=== PATIENT | male | born 1955 | race African-American/Black ===

== ENCOUNTER 2019-05-06 11:26 | Observation (INO) | payer BC ==
[2019-05-06] MEDS ORDERED: Ondansetron 4 MG/2 ML SDV IVPUSH PRN (12:11)
[2019-05-06] MEDS ORDERED: Morphine 2 MG/ML Syringe IVPUSH PRN (13:14)
--- NOTE | 2019-05-06 13:21 | PCM.HP.2 ---
<Marci Lira - Last Filed: 05/06/19 13:16> H&P History of Present Illness - General Date of Service: 05/06/19 Admit Problem/Dx: Admission Diagnosis/Problem Admission Diagnosis/Problem Pancreatitis - History of Present Illness Initial Comments - Free Text/Narative: The patient is a 64 year old male with past medical history of CAD, HTN, hyperlipidemia, and DMII who was a direct admit from his PCP, Carmella Eldridge. He was seen yesterday in clinic for abdominal pain, labs were drawn and when they returned today he instructed he needed to be admitted for pancreatitis. Patient report 8 day history of aching/burning epigastric pain, had one episode of nausea/vomiting several days ago but otherwise none and no diarrhea. Hasn't really been eating or drinking. Denies fever/chills, chest pain , or shortness of breath. Denies hx of pancreatitis, no hx of gallstones, drinks 3 beers a week at [email or web address]. In the outpatient setting, patient's lab showed no leukocytosis of anemia, did have elevated BUN/Cr 23/1.5, HA1c of 6.9, LFTs wnl, negative troponiin and lipase of 678. PCP- Carmella Eldridge Past Medical History HEENT History: Reports: None Cardiovascular History: Reports: CAD, High Cholesterol, Hypertension, MA. Denies: Stents Respiratory History: Reports: None Gastrointestinal History: Reports: None Genitourinary History: Reports: None Musculoskeletal History: Reports: None Neurological History: Reports: None Psychiatric History: Reports: None Endocrine/Metabolic History: Reports: Diabetes, Type II Hematologic History: Reports: None Immunologic History: Reports: None Dermatologic History: Reports: None Social & Family History - Tobacco Use Smoking Status *Q: Current Every Day Smoker - Alcohol Use Alcohol Use History: Yes Total Drinks Per Week Comment: 3 - Recreational Drug Use Recreational Drug Use: No H&P Review of Systems - Review of Systems: Review Of Systems: See Below General: Reports: No Symptoms HEENT: Reports: No Symptoms Pulmonary: Reports: No Symptoms Cardiovascular: Reports: No Symptoms Gastrointestinal: Reports: Abdominal Pain. Denies: Diarrhea, Nausea, Vomiting Genitourinary: Reports: No Symptoms Musculoskeletal: Reports: No Symptoms Skin: Reports: No Symptoms Psychiatric: Reports: No Symptoms Neurological: Reports: No Symptoms Hematologic/Lymphatic: Reports: No Symptoms Immunologic: Reports: No Symptoms Exam - Exam Exam: See Below - Exam General: Alert, Oriented, Cooperative HEENT: Conjunctiva Clear, EOMI, Mucosa Moist & [place], Posterior Pharynx Clear, Pupils Equal, Pupils Reactive Neck: Supple Lungs: Clear to Auscultation, Normal Respiratory Effort Cardiovascular: Regular Rate, Regular Rhythm GI/Abdominal Exam: Normal Bowel Sounds, Soft, Non-Tender, No Distention Extremities: No Pedal Edema Skin: Warm, Dry, Intact Neuro Extensive - Mental Status: Alert, Oriented x3 Psychiatric: Alert, Normal Affect, Normal Mood Problem List Initiated/Reviewed/Updated: Yes Orders Last 24hrs: Active Orders 24 hr Category Date Time Status Admission Status [Patient Status] [ADT] Routine ADT 05/06/19 12:12 Active Accu Check [Blood Glucose Check, Bedside] [RC] Q6HR Care 05/06/19 13:02 Active Intake and Output Strict [RC] ASDIRECTED Care 05/06/19 12:11 Active Vital Signs [RC] PER UNIT ROUTINE Care 05/06/19 12:11 Active Nothing Per Oral Diet [DIET] Diet 05/06/19 Dinner Active Abdomen Ltd [US] Stat Exams 05/06/19 12:11 Ordered CBC WITH AUTO DIFF [HEME] Stat Lab 05/06/19 12:11 Ordered COMPREHENSIVE METABOLIC PN,CMP [CHEM] Stat Lab 05/06/19 12:11 Ordered LIPASE [CHEM] Stat Lab 05/06/19 12:11 Ordered LIPID PANEL [CHEM] Stat Lab 05/06/19 13:15 Ordered Heparin Sodium Med 05/06/19 12:15 Ordered 5,000 units SUBCUT Q8H Insulin Aspart [NovoLOG] Med 05/06/19 17:00 Ordered See Protocol SUBCUT TIDAC Morphine Med 05/06/19 13:14 Ordered 1 mg IVPUSH Q4H PRN Ondansetron [Zofran] Med 05/06/19 12:11 Ordered 4 mg IVPUSH Q4H PRN Sodium Chloride 0.9% [Normal Saline] 1,000 ml Med 05/06/19 12:15 Ordered IV ASDIRECTED Resuscitation Status Routine Resus Stat 05/06/19 12:11 Ordered Medication Orders Heparin Sodium (Porcine) (Heparin Sodium) 5,000 units SUBCUT Q8H MATILDA Sodium Chloride (Normal Saline) 1,000 mls @ 200 mls/hr IV ASDIRECTED MATILDA Insulin Aspart (Novolog) 0 unit SUBCUT TIDAC MATILDA; Protocol Morphine Sulfate (Morphine) 1 mg IVPUSH Q4H PRN PRN Reason: Pain (severe 7-10) Ondansetron HCl (Zofran) 4 mg IVPUSH Q4H PRN PRN Reason: Nausea/Vomiting Assessment/Plan Comment:: 1. Admit for observation 2. Code status- Full 3. Vitals per routine 4. I/Os strict 5. Diet- NPO 6. DVT prophylaxis with heparin 7. Acute pancreatitis- will repeat labs- CBC, CMP, lipase and add lipid panel. Will obtain US or RUQ to rule out gallstones. Keep NPO, start IVF, and have morphine prn pain and zofran prn nausea/vomiting. 8. SUNIL- IVF 9. HTN- home meds 10. DMII- sliding scale and accuchecks 11. Tobacco use- nicotine patch. <Sherry Lewis - Last Filed: 05/07/19 14:03> H&P History of Present Illness - General Admit Problem/Dx: Admission Diagnosis/Problem Admission Diagnosis/Problem Pancreatitis Exam - Vital Signs Vital Signs: Last Vital Signs Temp 36.6 C 05/07/19 08:00 Pulse 77 05/07/19 10:25 Resp 15 05/07/19 08:00 BP 154/83 H 05/07/19 10:26 Pulse Ox 95 05/07/19 08:00 - Patient Data Lab Results Last 24 hrs: Laboratory Results - last 24 hr 05/06/19 05/06/19 05/06/19 Range/Units 13:30 13:30 17:30 WBC (4.0-11.0) K/uL RBC (4.50-5.90) M/uL Hgb (13.0-17.0) g/dL Hct (38.0-50.0) % MCV (80.0-98.0) fL MCH (27.0-32.0) pg MCHC (31.0-37.0) g/dL RDW Std Deviation (28.0-62.0) fl RDW Coeff of Glenna (11.0-15.0) % Plt Count (150-400) K/uL MPV (7.40-12.00) fL Neut % (Auto) (48.0-80.0) % Lymph % (Auto) (16.0-40.0) % [place] % (Auto) (0.0-15.0) % Eos % (Auto) (0.0-7.0) % Baso % (Auto) (0.0-1.5) % Neut # (Auto) (1.4-5.7) K/uL Lymph # (Auto) (0.6-2.4) K/uL [place] # (Auto) (0.0-0.8) K/uL Eos # (Auto) (0.0-0.7) K/uL Baso # (Auto) (0.0-0.1) K/uL Nucleated RBC % /100WBC Nucleated RBCs # K/uL Sodium 132 L (136-148) mmol/L Potassium 4.3 (3.5-5.1) mmol/L Chloride 99 (98-107) mmol/L Carbon Dioxide 29.1 (21.0-32.0) mmol/L BUN 21 H (7.0-18.0) mg/dL Creatinine 1.4 H (0.8-1.3) mg/dL Est Cr Clr Drug Dosing 42.90 mL/min Estimated GFR (MDRD) > 60.0 ml/min Glucose 126 H (74-106) mg/dL POC Glucose 91 (60-110) mg/dL Calcium 10.4 H (8.5-10.1) mg/dL Total Bilirubin 0.8 (0.2-1.0) mg/dL AST 17 (15-37) IU/L ALT 16 (14-63) IU/L Alkaline Phosphatase 64 (46-116) U/L Total Protein 8.7 H (6.4-8.2) g/dL Albumin 4.1 (3.4-5.0) g/dL Globulin 4.6 H (2.6-4.0) g/dL Albumin/Globulin Ratio 0.9 (0.9-1.6) Triglycerides 74 (0-200) mg/dL Cholesterol 114 (50-200) mg/dL LDL Cholesterol, Calc 56 L (60-180) mg/dL VLDL Cholesterol 14 (5-55) mg/dL HDL Cholesterol 43 (40-60) mg/dL Cholesterol/HDL Ratio 2.7 L (3.3-6.0) Lipase 630 H (73-393) U/L 05/07/19 05/07/19 05/07/19 Range/Units 00:18 06:05 06:05 WBC 5.96 (4.0-11.0) K/uL RBC 4.65 (4.50-5.90) M/uL Hgb 13.7 (13.0-17.0) g/dL Hct 38.9 (38.0-50.0) % MCV 83.7 (80.0-98.0) fL MCH 29.5 (27.0-32.0) pg MCHC 35.2 (31.0-37.0) g/dL RDW Std Deviation 38.1 (28.0-62.0) fl RDW Coeff of Glenna 13 (11.0-15.0) % Plt Count 216 (150-400) K/uL MPV 10.20 (7.40-12.00) fL Neut % (Auto) 41.4 L (48.0-80.0) % Lymph % (Auto) 50.0 H (16.0-40.0) % [place] % (Auto) 6.2 (0.0-15.0) % Eos % (Auto) 1.7 (0.0-7.0) % Baso % (Auto) 0.7 (0.0-1.5) % Neut # (Auto) 2.5 (1.4-5.7) K/uL Lymph # (Auto) 3.0 H (0.6-2.4) K/uL [place] # (Auto) 0.4 (0.0-0.8) K/uL Eos # (Auto) 0.1 (0.0-0.7) K/uL Baso # (Auto) 0.0 (0.0-0.1) K/uL Nucleated RBC % 0.0 /100WBC Nucleated RBCs # 0 K/uL Sodium 136 (136-148) mmol/L Potassium 4.1 (3.5-5.1) mmol/L Chloride 102 (98-107) mmol/L Carbon Dioxide 25.8 (21.0-32.0) mmol/L BUN 19 H (7.0-18.0) mg/dL Creatinine 1.4 H (0.8-1.3) mg/dL Est Cr Clr Drug Dosing 42.90 mL/min Estimated GFR (MDRD) > 60.0 ml/min Glucose 103 (74-106) mg/dL POC Glucose 139 H (60-110) mg/dL Calcium 8.7 (8.5-10.1) mg/dL Total Bilirubin 0.7 (0.2-1.0) mg/dL AST 13 L (15-37) IU/L ALT 13 L (14-63) IU/L Alkaline Phosphatase 51 (46-116) U/L Total Protein 6.7 (6.4-8.2) g/dL Albumin 3.2 L (3.4-5.0) g/dL Globulin 3.5 (2.6-4.0) g/dL Albumin/Globulin Ratio 0.9 (0.9-1.6) Triglycerides (0-200) mg/dL Cholesterol (50-200) mg/dL LDL Cholesterol, Calc (60-180) mg/dL VLDL Cholesterol (5-55) mg/dL HDL Cholesterol (40-60) mg/dL Cholesterol/HDL Ratio (3.3-6.0) Lipase (73-393) U/L 05/07/19 05/07/19 Range/Units 06:16 11:41 WBC (4.0-11.0) K/uL RBC (4.50-5.90) M/uL Hgb (13.0-17.0) g/dL Hct (38.0-50.0) % MCV (80.0-98.0) fL MCH (27.0-32.0) pg MCHC (31.0-37.0) g/dL RDW Std Deviation (28.0-62.0) fl RDW Coeff of Glenna (11.0-15.0) % Plt Count (150-400) K/uL MPV (7.40-12.00) fL Neut % (Auto) (48.0-80.0) % Lymph % (Auto) (16.0-40.0) % [place] % (Auto) (0.0-15.0) % Eos % (Auto) (0.0-7.0) % Baso % (Auto) (0.0-1.5) % Neut # (Auto) (1.4-5.7) K/uL Lymph # (Auto) (0.6-2.4) K/uL [place] # (Auto) (0.0-0.8) K/uL Eos # (Auto) (0.0-0.7) K/uL Baso # (Auto) (0.0-0.1) K/uL Nucleated RBC % /100WBC Nucleated RBCs # K/uL Sodium (136-148) mmol/L Potassium (3.5-5.1) mmol/L Chloride (98-107) mmol/L Carbon Dioxide (21.0-32.0) mmol/L BUN (7.0-18.0) mg/dL Creatinine (0.8-1.3) mg/dL Est Cr Clr Drug Dosing mL/min Estimated GFR (MDRD) ml/min Glucose (74-106) mg/dL POC Glucose 86 106 (60-110) mg/dL Calcium (8.5-10.1) mg/dL Total Bilirubin (0.2-1.0) mg/dL AST (15-37) IU/L ALT (14-63) IU/L Alkaline Phosphatase (46-116) U/L Total Protein (6.4-8.2) g/dL Albumin (3.4-5.0) g/dL Globulin (2.6-4.0) g/dL Albumin/Globulin Ratio (0.9-1.6) Triglycerides (0-200) mg/dL Cholesterol (50-200) mg/dL LDL Cholesterol, Calc (60-180) mg/dL VLDL Cholesterol (5-55) mg/dL HDL Cholesterol (40-60) mg/dL Cholesterol/HDL Ratio (3.3-6.0) Lipase (73-393) U/L Result Diagrams: 05/07/19 06:05 05/07/19 06:05 Sepsis Event Note - Focused Exam Vital Signs: Vital Signs Temp Pulse Pulse Resp BP BP Pulse Ox 05/07/19 10:26 154/83 H 05/07/19 10:25 77 154/83 H 05/07/19 10:22 154/83 H 05/07/19 08:00 36.6 C 71 15 173/88 H 95 05/07/19 03:40 36.5 C 76 16 174/77 H 98 Date Exam was Performed: 05/07/19 Time Exam was Performed: 14:02 - Problem List (1) Pancreatitis SNOMED Code(s): 28847664 ICD Code: K85.90 - ACUTE PANCREATITIS WITHOUT NECROSIS OR INFECTION, UNSP Status: Acute Current Visit: Yes (2) HTN (hypertension) SNOMED Code(s): 07921745 ICD Code: I10 - ESSENTIAL (PRIMARY) HYPERTENSION Status: Acute Current Visit: Yes (3) Diabetes SNOMED Code(s): 45699283 ICD Code: E11.9 - TYPE 2 DIABETES MELLITUS WITHOUT COMPLICATIONS Status: Acute Current Visit: Yes Orders Last 24hrs: Active Orders 24 hr Category Date Time Status Communication Order [RC] ROUTINE Care 05/07/19 04:17 Active Telemetry Monitoring [Cardiac Monitoring] [RC] Q8HR Care 05/06/19 16:00 Active Heart Healthy Diet [DIET] Diet 05/07/19 Lunch Active Aspirin [Halfprin] Med 05/07/19 10:00 Active 81 mg PO DAILY Insulin Aspart [NovoLOG] Med 05/06/19 17:00 Active See Protocol SUBCUT TIDAC Labetalol [Normodyne] Med 05/06/19 23:13 Active 10 mg IVPUSH Q4H PRN Morphine Med 05/06/19 13:14 Active 1 mg IVPUSH Q4H PRN Nicotine [Habitrol] Med 05/06/19 13:30 Active 7 mg TRDERM DAILY Pantoprazole [ProTONIX IV] 40 mg Med 05/06/19 17:45 Active Sodium Chloride 0.9% [Normal Saline] 10 ml IV Q24H amLODIPine [Norvasc] Med 05/07/19 10:00 Active 10 mg PO DAILY atorvaSTATin [Lipitor] Med 05/07/19 21:00 Active 40 mg PO BEDTIME carvediloL [Coreg] Med 05/07/19 10:00 Active 12.5 mg PO BID lisinopriL [Prinivil] Med 05/07/19 10:00 Active 10 mg PO DAILY Medication Orders Amlodipine Besylate (Norvasc) 10 mg PO DAILY [facility] Last Admin: 05/07/19 10:22 Dose: 10 mg Aspirin (Halfprin) 81 mg PO DAILY [facility] Last Admin: 05/07/19 10:25 Dose: 81 mg Atorvastatin Calcium (Lipitor) 40 mg PO BEDTIME [facility] Carvedilol (Coreg) 12.5 mg PO BID [facility] Last Admin: 05/07/19 10:25 Dose: 12.5 mg Heparin Sodium (Porcine) (Heparin Sodium) 5,000 units SUBCUT Q8H [facility] Last Admin: 05/07/19 12:16 Dose: 5,000 units Admin: 05/07/19 03:36 Dose: 5,000 units Admin: 05/06/19 20:07 Dose: 5,000 units Admin: 05/06/19 14:11 Dose: 5,000 units Sodium Chloride (Normal Saline) 1,000 mls @ 125 mls/hr IV ASDIRECTED [facility] Last Admin: 05/07/19 11:18 Dose: 125 mls/hr Infusion: 05/07/19 11:18 Dose: 125 mls/hr Admin: 05/07/19 03:36 Dose: 125 mls/hr Infusion: 05/07/19 03:15 Dose: 125 mls/hr Infusion: 05/06/19 21:30 Dose: 125 mls/hr Admin: 05/06/19 20:05 Dose: 200 mls/hr Infusion: 05/06/19 20:00 Dose: 200 mls/hr Admin: 05/06/19 15:00 Dose: 200 mls/hr Pantoprazole Sodium 40 mg/ (Sodium Chloride) 10 mls @ 300 mls/hr IV Q24H [facility] Last Admin: 05/06/19 18:24 Dose: 300 mls/hr Insulin Aspart (Novolog) 0 unit SUBCUT TIDAC [facility]; Protocol Last Admin: 05/07/19 11:42 Dose: Not Given Admin: 05/07/19 07:19 Dose: Not Given Admin: 05/06/19 17:53 Dose: Not Given Labetalol HCl (Normodyne) 10 mg IVPUSH Q4H PRN; Protocol PRN Reason: Hypertension Lisinopril (Prinivil) 10 mg PO DAILY [facility] Last Admin: 05/07/19 10:26 Dose: 10 mg Morphine Sulfate (Morphine) 1 mg IVPUSH Q4H PRN PRN Reason: Pain (severe 7-10) Last Admin: 05/06/19 15:24 Dose: 1 mg Nicotine (Habitrol) 7 mg TRDERM DAILY [facility] Last Admin: 05/07/19 09:03 Dose: 7 mg Admin: 05/06/19 14:07 Dose: 7 mg Ondansetron HCl (Zofran) 4 mg IVPUSH Q4H PRN PRN Reason: Nausea/Vomiting Assessment/Plan Comment:: I performed a history and physical exam of the patient and discussed management with resident. I have reviewed the residents note and agree with documented findings and plan unless otherwise specified in my note.
[2019-05-06 14:06] LABS: BLOOD UREA NITROGEN,BUN 21 mg/dL (7.0-18.0); CARBON DIOXIDE,CO2 29.1 mmol/L (21.0-32.0); CHLORIDE,CL 99 mmol/L (98-107); GLUCOSE RANDOM 126 mg/dL (74-106); LIPASE 630 U/L (73-393); POTASSIUM,K 4.3 mmol/L (3.5-5.1); SODIUM,NA 132 mmol/L (136-148)
[2019-05-06] MEDS: Nicotine 7 MG/24 Hr Patch TRDERM SCH (14:07)
[2019-05-06] MEDS: Heparin Sodium 5,000 Units/ML Vial SUBCUT SCH ×2 (14:11→20:07)
--- NOTE | 2019-05-06 14:22 | US ---
Limited abdominal ultrasound: Multiple real-time images of the upper right abdomen were obtained. Comparison: No previous study is available. Findings: Liver contains no focal abnormality. Pancreas is obscured from bowel gas. Right kidney shows no hydronephrosis or mass. Right kidney length is 10.4 cm. Gallbladder contains no shadowing gallstones. No gallbladder wall thickening or biliary duct dilatation is seen. Impression: 1. Obscured pancreas. 2. No additional abnormality is appreciated on right upper quadrant abdominal ultrasound exam. Diagnostic code #2 This report was dictated in [place] [employer] Time
[2019-05-06] MEDS: Sodium Chloride 0.9% 1,000 ML IV SCH ×2 (15:00→20:05)
[2019-05-06] MEDS ORDERED: Pantoprazole 40 MG in Sodium Chloride 0.9% 10 ML IV SCH (17:45)
[2019-05-06] MEDS: Insulin Aspart 100 Units/ML 3 ML Pen SUBCUT SCH (17:53)
[2019-05-06] MEDS ORDERED: Labetalol 100 MG/20 ML MDV IVPUSH ONE (21:10)
[2019-05-06] MEDS ORDERED: Labetalol 100 MG/20 ML MDV IVPUSH PRN (23:13)
[2019-05-07] MEDS: Heparin Sodium 5,000 Units/ML Vial SUBCUT SCH ×2 (03:36→12:16)
[2019-05-07] MEDS: Sodium Chloride 0.9% 1,000 ML IV SCH ×2 (03:36→11:18)
[2019-05-07 07:04] LABS: BLOOD UREA NITROGEN,BUN 19 mg/dL (7.0-18.0); CARBON DIOXIDE,CO2 25.8 mmol/L (21.0-32.0); CHLORIDE,CL 102 mmol/L (98-107); GLUCOSE RANDOM 103 mg/dL (74-106); POTASSIUM,K 4.1 mmol/L (3.5-5.1); SODIUM,NA 136 mmol/L (136-148)
[2019-05-07] MEDS: Insulin Aspart 100 Units/ML 3 ML Pen SUBCUT SCH ×2 (07:19→11:42)
[2019-05-07] MEDS ORDERED: Carvedilol 12.5 MG Tab PO SCH ×2 (09:00→10:00)
[2019-05-07] MEDS ORDERED: Lisinopril 10 MG Tab PO SCH (09:00)
[2019-05-07] MEDS: Nicotine 7 MG/24 Hr Patch TRDERM SCH (09:03)
[2019-05-07] MEDS ORDERED: Aspirin 81 MG Tab.EC PO SCH (10:00)
[2019-05-07] MEDS ORDERED: Lisinopril 5 MG Tab PO SCH (10:00)
[2019-05-07] MEDS ORDERED: amLODIPine 5 MG Tab PO SCH (10:00)
--- NOTE | 2019-05-07 12:31 | PCM.DCSUM1 ---
Discharge Summary - Hospital Course HPI Initial Comments: The patient is a 64 year old male with past medical history of CAD, HTN, hyperlipidemia, and DMII who was a direct admit from his PCP, Carmella Eldridge. He was seen yesterday in clinic for abdominal pain, labs were drawn and when they returned today he instructed he needed to be admitted for pancreatitis. Patient report 8 day history of aching/burning epigastric pain, had one episode of nausea/vomiting several days ago but otherwise none and no diarrhea. Hasn't really been eating or drinking. Denies fever/chills, chest pain , or shortness of breath. Denies hx of pancreatitis, no hx of gallstones, drinks 3 beers a week at [employer]. In the outpatient setting, patient's lab showed no leukocytosis of anemia, did have elevated BUN/Cr 23/1.5, HA1c of 6.9, LFTs wnl, negative troponin and lipase of 678. USG liver showed no gall stones, Patient was admitted for management of pancreatitis. started on IVF, kept NPO, next day his diet was advanced and he was able tolerate soft diet. Patients labs were stable, he was started on PO PPI short term and recommended to fu with his PCP and possible surgery/GI on outpatient basis. Diagnosis: Stroke: No - Discharge Data Discharge Date: 05/07/19 Discharge Disposition: Home, Self-Care 01 Condition: Good - Referral to Home Health Primary Care Physician: Carmella Eldridge, [employer] - Discharge Diagnosis/Problem(s) (1) Pancreatitis SNOMED Code(s): 29473575 ICD Code: K85.90 - ACUTE PANCREATITIS WITHOUT NECROSIS OR INFECTION, UNSP Status: Acute Current Visit: Yes (2) HTN (hypertension) SNOMED Code(s): 46617674 ICD Code: I10 - ESSENTIAL (PRIMARY) HYPERTENSION Status: Acute Current Visit: Yes (3) Diabetes SNOMED Code(s): 24602081 ICD Code: E11.9 - TYPE 2 DIABETES MELLITUS WITHOUT COMPLICATIONS Status: Acute Current Visit: Yes - Discharge Plan *PRESCRIPTION DRUG MONITORING PROGRAM REVIEWED*: No *COPY OF PRESCRIPTION DRUG MONITORING REPORT IN PATIENT NICHOLE: No Prescriptions/Med Rec: Nicotine [Habitrol] 7 mg TRDERM DAILY #30 patch Pantoprazole Sodium 40 mg PO ACBREAKFAST #30 tablet. Home Medications: Home Meds Aspirin [Halfprin] 81 mg PO DAILY 05/06/19 [History] Carvedilol [Coreg] 12.5 mg PO DAILY 05/06/19 [History] Lisinopril [Zestril] 10 mg PO DAILY 05/06/19 [History] atorvaSTATin [Lipitor] 40 mg PO BEDTIME 05/06/19 [History] guaiFENesin/Codeine Phosphate [Guaiatussin AC] 5 ml PO DAILY 05/06/19 [History] metFORMIN [Glucophage] 1,000 mg PO BIDMEALS 05/06/19 [History] Nicotine [Habitrol] 7 mg TRDERM DAILY #30 patch 05/07/19 [Rx] Pantoprazole Sodium 40 mg PO ACBREAKFAST #30 tablet. 05/07/19 [Rx] Patient Handouts: Acute Pancreatitis, [id number] Referrals: Carmella Eldridge [facility] [Primary Care Provider] - 05/12/19 2:45 pm - Discharge Summary/Plan Comment DC Time >30 min.: No - Patient Data Vitals - Most Recent: Last Vital Signs Temp 36.6 C 05/07/19 08:00 Pulse 77 05/07/19 10:25 Resp 15 05/07/19 08:00 BP 154/83 H 05/07/19 10:26 Pulse Ox 95 05/07/19 08:00 Weight - Most Recent: 77.8 kg I&O - Last 24 hours: Intake & Output 05/06/19 05/07/19 05/07/19 22:59 06:59 14:59 Intake Total 301 1943 962 Output Total 100 400 Balance 201 1543 962 Lab Results - Last 24 hrs: Laboratory Results - last 24 hr 05/06/19 05/06/19 05/06/19 Range/Units 13:30 13:30 13:30 WBC 6.27 (4.0-11.0) K/uL RBC 5.39 (4.50-5.90) M/uL Hgb 16.2 (13.0-17.0) g/dL Hct 44.7 (38.0-50.0) % MCV 82.9 (80.0-98.0) fL MCH 30.1 (27.0-32.0) pg MCHC 36.2 (31.0-37.0) g/dL RDW Std Deviation 37.9 (28.0-62.0) fl RDW Coeff of Glenna 13 (11.0-15.0) % Plt Count 238 (150-400) K/uL MPV 9.50 (7.40-12.00) fL Neut % (Auto) 46.1 L (48.0-80.0) % Lymph % (Auto) 44.7 H (16.0-40.0) % [place] % (Auto) 7.0 (0.0-15.0) % Eos % (Auto) 1.9 (0.0-7.0) % Baso % (Auto) 0.3 (0.0-1.5) % Neut # (Auto) 2.9 (1.4-5.7) K/uL Lymph # (Auto) 2.8 H (0.6-2.4) K/uL [place] # (Auto) 0.4 (0.0-0.8) K/uL Eos # (Auto) 0.1 (0.0-0.7) K/uL Baso # (Auto) 0.0 (0.0-0.1) K/uL Nucleated RBC % 0.0 /100WBC Nucleated RBCs # 0 K/uL Sodium 132 L (136-148) mmol/L Potassium 4.3 (3.5-5.1) mmol/L Chloride 99 (98-107) mmol/L Carbon Dioxide 29.1 (21.0-32.0) mmol/L BUN 21 H (7.0-18.0) mg/dL Creatinine 1.4 H (0.8-1.3) mg/dL Est Cr Clr Drug Dosing 42.90 mL/min Estimated GFR (MDRD) > 60.0 ml/min Glucose 126 H (74-106) mg/dL POC Glucose (60-110) mg/dL Calcium 10.4 H (8.5-10.1) mg/dL Total Bilirubin 0.8 (0.2-1.0) mg/dL AST 17 (15-37) IU/L ALT 16 (14-63) IU/L Alkaline Phosphatase 64 (46-116) U/L Total Protein 8.7 H (6.4-8.2) g/dL Albumin 4.1 (3.4-5.0) g/dL Globulin 4.6 H (2.6-4.0) g/dL Albumin/Globulin Ratio 0.9 (0.9-1.6) Triglycerides 74 (0-200) mg/dL Cholesterol 114 (50-200) mg/dL LDL Cholesterol, Calc 56 L (60-180) mg/dL VLDL Cholesterol 14 (5-55) mg/dL HDL Cholesterol 43 (40-60) mg/dL Cholesterol/HDL Ratio 2.7 L (3.3-6.0) Lipase 630 H (73-393) U/L 05/06/19 05/07/19 05/07/19 Range/Units 17:30 00:18 06:05 WBC 5.96 (4.0-11.0) K/uL RBC 4.65 (4.50-5.90) M/uL Hgb 13.7 (13.0-17.0) g/dL Hct 38.9 (38.0-50.0) % MCV 83.7 (80.0-98.0) fL MCH 29.5 (27.0-32.0) pg MCHC 35.2 (31.0-37.0) g/dL RDW Std Deviation 38.1 (28.0-62.0) fl RDW Coeff of Glenna 13 (11.0-15.0) % Plt Count 216 (150-400) K/uL MPV 10.20 (7.40-12.00) fL Neut % (Auto) 41.4 L (48.0-80.0) % Lymph % (Auto) 50.0 H (16.0-40.0) % [place] % (Auto) 6.2 (0.0-15.0) % Eos % (Auto) 1.7 (0.0-7.0) % Baso % (Auto) 0.7 (0.0-1.5) % Neut # (Auto) 2.5 (1.4-5.7) K/uL Lymph # (Auto) 3.0 H (0.6-2.4) K/uL [place] # (Auto) 0.4 (0.0-0.8) K/uL Eos # (Auto) 0.1 (0.0-0.7) K/uL Baso # (Auto) 0.0 (0.0-0.1) K/uL Nucleated RBC % 0.0 /100WBC Nucleated RBCs # 0 K/uL Sodium (136-148) mmol/L Potassium (3.5-5.1) mmol/L Chloride (98-107) mmol/L Carbon Dioxide (21.0-32.0) mmol/L BUN (7.0-18.0) mg/dL Creatinine (0.8-1.3) mg/dL Est Cr Clr Drug Dosing mL/min Estimated GFR (MDRD) ml/min Glucose (74-106) mg/dL POC Glucose 91 139 H (60-110) mg/dL Calcium (8.5-10.1) mg/dL Total Bilirubin (0.2-1.0) mg/dL AST (15-37) IU/L ALT (14-63) IU/L Alkaline Phosphatase (46-116) U/L Total Protein (6.4-8.2) g/dL Albumin (3.4-5.0) g/dL Globulin (2.6-4.0) g/dL Albumin/Globulin Ratio (0.9-1.6) Triglycerides (0-200) mg/dL Cholesterol (50-200) mg/dL LDL Cholesterol, Calc (60-180) mg/dL VLDL Cholesterol (5-55) mg/dL HDL Cholesterol (40-60) mg/dL Cholesterol/HDL Ratio (3.3-6.0) Lipase (73-393) U/L 05/07/19 05/07/19 05/07/19 Range/Units 06:05 06:16 11:41 WBC (4.0-11.0) K/uL RBC (4.50-5.90) M/uL Hgb (13.0-17.0) g/dL Hct (38.0-50.0) % MCV (80.0-98.0) fL MCH (27.0-32.0) pg MCHC (31.0-37.0) g/dL RDW Std Deviation (28.0-62.0) fl RDW Coeff of Glenna (11.0-15.0) % Plt Count (150-400) K/uL MPV (7.40-12.00) fL Neut % (Auto) (48.0-80.0) % Lymph % (Auto) (16.0-40.0) % [place] % (Auto) (0.0-15.0) % Eos % (Auto) (0.0-7.0) % Baso % (Auto) (0.0-1.5) % Neut # (Auto) (1.4-5.7) K/uL Lymph # (Auto) (0.6-2.4) K/uL [place] # (Auto) (0.0-0.8) K/uL Eos # (Auto) (0.0-0.7) K/uL Baso # (Auto) (0.0-0.1) K/uL Nucleated RBC % /100WBC Nucleated RBCs # K/uL Sodium 136 (136-148) mmol/L Potassium 4.1 (3.5-5.1) mmol/L Chloride 102 (98-107) mmol/L Carbon Dioxide 25.8 (21.0-32.0) mmol/L BUN 19 H (7.0-18.0) mg/dL Creatinine 1.4 H (0.8-1.3) mg/dL Est Cr Clr Drug Dosing 42.90 mL/min Estimated GFR (MDRD) > 60.0 ml/min Glucose 103 (74-106) mg/dL POC Glucose 86 106 (60-110) mg/dL Calcium 8.7 (8.5-10.1) mg/dL Total Bilirubin 0.7 (0.2-1.0) mg/dL AST 13 L (15-37) IU/L ALT 13 L (14-63) IU/L Alkaline Phosphatase 51 (46-116) U/L Total Protein 6.7 (6.4-8.2) g/dL Albumin 3.2 L (3.4-5.0) g/dL Globulin 3.5 (2.6-4.0) g/dL Albumin/Globulin Ratio 0.9 (0.9-1.6) Triglycerides (0-200) mg/dL Cholesterol (50-200) mg/dL LDL Cholesterol, Calc (60-180) mg/dL VLDL Cholesterol (5-55) mg/dL HDL Cholesterol (40-60) mg/dL Cholesterol/HDL Ratio (3.3-6.0) Lipase (73-393) U/L Med Orders - Current: Current Medications Amlodipine Besylate (Norvasc) 10 mg PO DAILY [facility] Last Admin: 05/07/19 10:22 Dose: 10 mg Aspirin (Halfprin) 81 mg PO DAILY [facility] Last Admin: 05/07/19 10:25 Dose: 81 mg Atorvastatin Calcium (Lipitor) 40 mg PO BEDTIME [facility] Carvedilol (Coreg) 12.5 mg PO BID [facility] Last Admin: 05/07/19 10:25 Dose: 12.5 mg Heparin Sodium (Porcine) (Heparin Sodium) 5,000 units SUBCUT Q8H [facility] Last Admin: 05/07/19 12:16 Dose: 5,000 units Sodium Chloride (Normal Saline) 1,000 mls @ 125 mls/hr IV ASDIRECTED [facility] Last Admin: 05/07/19 11:18 Dose: 125 mls/hr Pantoprazole Sodium 40 mg/ (Sodium Chloride) 10 mls @ 300 mls/hr IV Q24H [facility] Last Admin: 05/06/19 18:24 Dose: 300 mls/hr Insulin Aspart (Novolog) 0 unit SUBCUT TIDAC [facility]; Protocol Last Admin: 05/07/19 11:42 Dose: Not Given Labetalol HCl (Normodyne) 10 mg IVPUSH Q4H PRN; Protocol PRN Reason: Hypertension Lisinopril (Prinivil) 10 mg PO DAILY [facility] Last Admin: 05/07/19 10:26 Dose: 10 mg Morphine Sulfate (Morphine) 1 mg IVPUSH Q4H PRN PRN Reason: Pain (severe 7-10) Last Admin: 05/06/19 15:24 Dose: 1 mg Nicotine (Habitrol) 7 mg TRDERM DAILY [facility] Last Admin: 05/07/19 09:03 Dose: 7 mg Ondansetron HCl (Zofran) 4 mg IVPUSH Q4H PRN PRN Reason: Nausea/Vomiting Discontinued Medications Carvedilol (Coreg) 12.5 mg PO DAILY [facility] Labetalol HCl (Normodyne) 10 mg IVPUSH ONETIME ONE; Protocol Stop: 05/06/19 21:11 Last Admin: 05/06/19 21:33 Dose: 10 mg Lisinopril (Prinivil) 10 mg PO DAILY [facility]
[2019-05-07] MEDS ORDERED: atorvaSTATin 40 MG Tab PO SCH (21:00)
== END 2019-05-07 15:00 | disposition home or self-care (01) ==
LOC: MW.MS 11:26
PROVIDERS: ADMIT Student in an Organized Health Care Education/Training Program; ATTEND Student in an Organized Health Care Education/Training Program
DX: K85.90 Acute pancreatitis without necrosis or infection, unspecified (principal); I10 Essential (primary) hypertension; E11.9 Type 2 diabetes mellitus without complications; I25.10 Atherosclerotic heart disease of native coronary artery without angina pectoris; N17.9 Acute kidney failure, unspecified; E78.5 Hyperlipidemia, unspecified; E78.00 Pure hypercholesterolemia, unspecified; F17.210 Nicotine dependence, cigarettes, uncomplicated; Z79.82 Long term (current) use of aspirin; Z79.899 Other long term (current) drug therapy; Z79.84 Long term (current) use of oral hypoglycemic drugs
CPT/HCPCS: 36415; 76705; 80053; 80061; 82962; 83690; 85025; A9270; C9113; J1644; J2270; J3490; J7030; J7050; 96361; 96372; 96374; 96375; G0378; G0379